=== PATIENT | male | born 1985 | race African-American/Black ===

== ENCOUNTER 2018-07-13 19:54 | Emergency (ER) | payer MEDICAID ==
[~2018-07-13] VITALS: Ht 182.9 cm; Wt 77.0 kg
[2018-07-13] MEDS ORDERED: IBUPROFEN 600MG TABLET PO ONE (22:30)
[2018-07-14 00:32] VITALS: BP 118/59
== END 2018-07-14 00:33 | disposition home or self-care (01) ==
LOC: ER 19:54
DX: S61.214A Laceration without foreign body of right ring finger without damage to nail, initial encounter (principal); X58.XXXA Exposure to other specified factors, initial encounter; Y93.89 Activity, other specified; Y92.89 Other specified places as the place of occurrence of the external cause; Y99.2 Volunteer activity
CPT/HCPCS: 29125; 73130; 99284

== ENCOUNTER 2018-11-21 08:13 | Emergency (ER) | payer MEDICAID ==
[~2018-11-21] VITALS: Ht 182.9 cm; Wt 78.0 kg
[2018-11-21 12:22] VITALS: BP 113/87
[2018-11-21] MEDS ORDERED: CEFTRIAXONE SODIUM 250 MG/VIAL IM ONE (13:30)
[2018-11-21] MEDS ORDERED: AZITHROMYCIN 500 MG TABLET PO ONE (13:30)
== END 2018-11-21 13:50 | disposition home or self-care (01) ==
LOC: ER 08:24
DX: N48.1 Balanitis (principal); K59.00 Constipation, unspecified; Z20.2 Contact with and (suspected) exposure to infections with a predominantly sexual mode of transmission
CPT/HCPCS: 96372; 99283; J0696

== ENCOUNTER 2019-03-10 01:38 | Emergency (ER) | payer MEDICAID ==
[~2019-03-10] VITALS: Ht 182.9 cm; Wt 81.0 kg
[2019-03-10 03:02] LABS: BASOPHILS % 0.9 % (0.0-2.0); EOSINOPHILS % 0.7 % (0.0-5.0); HEMATOCRIT. 40.1 % (42.0-52.0); HEMOGLOBIN. 13.7 g/dL (14.0-18.0); LYMPHOCYTES % 20.3 % (20.0-50.0); MEAN CORPUSCULAR HEMOGLOBIN 29.6 pg (28.0-32.0); MEAN CORPUSCULAR VOLUME 86.7 fL (80.0-94.0); MEAN PLATELET VOLUME 7.6 fl (7.4-10.4); MONOCYTES % 9.2 % (2.0-8.0); NEUTROPHILS % 68.9 % (40.0-76.0); PLATELET 239 x1000/uL (130-400); RED BLOOD CELL COUNT 4.63 mill/uL (4.7-6.1); RED CELL DISTRIBUTION WIDTH 13.4 % (11.6-14.6)
[2019-03-10 03:43] LABS: CHLORIDE 103 mEq/L (98-107)
[2019-03-10 06:00] VITALS: BP 113/71
== END 2019-03-10 06:01 | disposition home or self-care (01) ==
LOC: ER 01:48
DX: S00.83XA Contusion of other part of head, initial encounter (principal); F41.9 Anxiety disorder, unspecified; W01.0XXA Fall on same level from slipping, tripping and stumbling without subsequent striking against object, initial encounter; Y93.89 Activity, other specified; Y92.018 Other place in single-family (private) house as the place of occurrence of the external cause
CPT/HCPCS: 36415; 71045; 84484; 85379; 93005; 99284

== ENCOUNTER 2019-07-06 22:07 | Emergency (ER) | payer MEDICAID ==
[~2019-07-06] VITALS: Ht 182.9 cm; Wt 77.0 kg
[2019-07-07] MEDS ORDERED: IBUPROFEN 600MG TABLET PO STA (03:27)
[2019-07-07 05:36] VITALS: BP 110/75
== END 2019-07-07 05:36 | disposition home or self-care (01) ==
LOC: ER 23:51
DX: J02.9 Acute pharyngitis, unspecified (principal)
CPT/HCPCS: 87070; 87430; 99283

== ENCOUNTER 2021-08-06 21:56 | Emergency (ER) | payer MEDICAID ==
[~2021-08-06] VITALS: Ht 182.9 cm; Wt 85.0 kg
[2021-08-07 01:38] LABS: BASOPHILS % 0.7 % (0.0-2.0); EOSINOPHILS % 0.1 % (0.0-5.0); HEMATOCRIT. 39.4 % (42.0-52.0); HEMOGLOBIN. 13.5 g/dL (14.0-18.0); LYMPHOCYTES % 9.1 % (20.0-50.0); MEAN CORPUSCULAR HEMOGLOBIN 29.8 pg (28.0-32.0); MEAN CORPUSCULAR VOLUME 86.7 fL (80.0-94.0); MEAN PLATELET VOLUME 8.3 fl (7.4-10.4); MONOCYTES % 4.8 % (2.0-8.0); NEUTROPHILS % 85.3 % (40.0-76.0); PLATELET 222 x1000/uL (130-400); RED BLOOD CELL COUNT 4.54 mill/uL (4.7-6.1)
[2021-08-07 01:44] LABS: CHLORIDE 103 mEq/L (98-107)
[2021-08-07] MEDS ORDERED: SODIUM CHLORIDE 0.9% 1,000 ML IV ONE (01:45)
[2021-08-07 02:18] LABS: *AMPHETAMINES SCREEN URINE NEGATIVE (NEGATIVE); *BARBITURATES SCREEN URINE NEGATIVE (NEGATIVE); *BENZODIAZEPINES SCREEN URINE NEGATIVE (NEGATIVE)
[2021-08-07 02:19] LABS: *COCAINE SCREEN URINE NEGATIVE (NEGATIVE); CANNABINOID URINE SCREEN PRESUMTIVE POSITIVE (NEGATIVE); METHADONE URINE SCREEN NEGATIVE (NEGATIVE); OPIATES URINE SCREEN NEGATIVE (NEGATIVE); PHENCYCLIDINE URINE SCREEN NEGATIVE (NEGATIVE)
[2021-08-07 05:06] VITALS: BP 101/72
== END 2021-08-07 05:06 | disposition home or self-care (01) ==
LOC: ER 21:56
DX: R55 Syncope and collapse (principal)
CPT/HCPCS: 36415; 70450; 80053; 80305; 84484; 85025; 93005; 96360; 96361; 99285; J7030

== ENCOUNTER 2022-06-04 14:10 | Emergency (ER) | payer OTHER, MEDICAID ==
[~2022-06-04] VITALS: Ht 182.9 cm; Wt 81.0 kg
[2022-06-04] MEDS ORDERED: TETRACAINE 0.5% OPHTH DROPS 4ML LEFTEYE ONE (15:30)
[2022-06-04] MEDS ORDERED: FLUORESCEIN SODIUM 1MG/STRIP LEFTEYE ONE (15:30)
[2022-06-04] MEDS ORDERED: IBUPROFEN 400MG TABLET PO ONE (15:30)
[2022-06-04] MEDS ORDERED: SULF5DRO LEFTEYE (15:54)
[2022-06-04] MEDS ORDERED: IBUP-2028 MT (15:54)
[2022-06-04 17:22] VITALS: BP 132/73
== END 2022-06-04 17:23 | disposition home or self-care (01) ==
LOC: ER 14:10
DX: S05.02XA Injury of conjunctiva and corneal abrasion without foreign body, left eye, initial encounter (principal); R45.1 Restlessness and agitation; X58.XXXA Exposure to other specified factors, initial encounter; Y93.89 Activity, other specified; Y92.89 Other specified places as the place of occurrence of the external cause; Y99.8 Other external cause status
CPT/HCPCS: 99284